=== PATIENT | female | born 1985 | race Two or more races ===

== ENCOUNTER 2025-01-19 15:17 | Emergency (ER) | payer MEDICAID ==
[~2025-01-19] VITALS: Ht 162.6 cm; Wt 85.9 kg
[2025-01-19] MEDS ORDERED: CIPR1SUS8 OT (16:00)
--- NOTE | 2025-01-19 16:00 | ED.PDOC ---
Eye-HPI HPI Comments L ear Chief Complaint: Earache Time Seen by MD: 15:40 Allergies: Coded Allergies: Latex (Verified Allergy, Unknown, 01/19/25) Home Meds Active Scripts Ciprofloxacin-Dexamethasone (Ciprofloxacin/Dexamethaso 0.3-0.1 %) 1 Bianca Bianca, 4 DROP OT BID for 7 Days, #5 ML 0 Refills Prov:CA MERINO PHYSICAL EDUCATION INSTRUCTOR 01/19/25 Mode of Arrival: Ambulatory X-Ray, Labs, Meds, VS Vital Signs Date Time Temp Pulse Resp B/P (MAP) Pulse Ox O2 Delivery O2 Flow Rate FiO2 01/19/25 15:19 98.2 96 18 152/95 99 98.2 SEPSIS Sepsis Screen Date sepsis recognized/suspect: Jan 19, 2025 Time Sepsis recognized/suspect: 1516 Recent Procedure: No On Antibiotic Therapy: No Respiratory Rate >20: No Heart Rate >90: No Temp<36 C (96.8 F) or >38.3 C: No SBP <90 or MAP <65 mmHG: No New Acute Mental Status Change: No Is the patient on CPAP, BIPAP,: No Vital Signs Date Time Temp Pulse Resp B/P (MAP) Pulse Ox O2 Delivery O2 Flow Rate FiO2 01/19/25 15:19 98.2 96 18 152/95 99 98.2 Departure 1 Departure Time of Disposition: 15:59 Impression: Primary Impression: Perforation of tympanic membrane Qualified Codes: H72.92 - Unspecified perforation of tympanic membrane, left ear Disposition: 01 HOME / SELF CARE / HOMELESS Condition: Stable e-Prescriptions Ciprofloxacin-Dexamethasone (Ciprofloxacin/Dexamethaso 0.3-0.1 %) 1 Bianca Bianca 4 DROP OT BID for 7 Days, #5 ML 0 Refills Prov: CA MERINO NP 01/19/25 I personally scribed for CA MERINO NP ([email or web address]) on 01/19/25 at 16:02. Electronically submitted by Yasmine Purvis ([email or web address]). CA MERINO NP Jan 19, 2025 16:00
--- NOTE | 2025-01-19 16:01 | ED.PDOC ---
Eye-HPI HPI Comments 39 year old female presents to the ED with a chief complaint of LT ear pain onset 3 days. Patient states she was cleaning ears with Q-tip, since then has been experiencing clogging sensation, pain when she is laying down and muffled hearing. Has not taken any medication to improve symptoms. No other symptoms or modifying factors present at this time. Denies hearing loss, drainage Denies headache dizziness blurred vision Denies chest pain shortness of breath Chief Complaint: Earache Time Seen by MD: 15:55 Reviewed Notes: Medications, Allergies Allergies: Coded Allergies: Latex (Verified Allergy, Unknown, 01/19/25) Home Meds Active Scripts Ciprofloxacin-Dexamethasone (Ciprofloxacin/Dexamethaso 0.3-0.1 %) 1 Bianca Bianca, 4 DROP OT BID for 7 Days, #5 ML 0 Refills Prov:ANGELIQUECABerenice Wolfe NP 01/19/25 Information Source: Patient Mode of Arrival: Ambulatory Timing: Days Duration: Since onset Prehospital treatment: None Quality: Pain Associated signs and symptoms: Ear Pain Past Medical History PAST MEDICAL HISTORY: Denies Surgical History: Denies all surgeries SUPERVISOR COMPOUNDING AND FINISHING History: No Pertinent SUPERVISOR COMPOUNDING AND FINISHING History Family History Family History: Reviewed,noncontributory to illness, No family hx of Cancer, No family hx of DM, No family hx of Heart quique, No family hx of HTN, No family hx ofKidney quique, No family hx of Liver quique, No family hx of Lung quique, No family hx of Stroke Social History Smoker: Non-Smoker Alcohol: Denies ETOH Use Drugs: Denies Drug Use Lives In: Home All Other Systems: Reviewed and Negative (as per HPI) Physical Exam General Appearance: No Apparent Distress, Normal HEENT: TM Abnormal (L) (perforated TM at 1 oclock, no active bleeding, hearing still intact ) Neck: Full Range of Motion, Non-Tender, Normal, Normal Inspection Respiratory: Chest Non-Tender, Lungs Clear, No Accessory Muscle Use, No Respiratory Distress, Normal Breath Sounds Cardiovascular: No Edema, No JVD, No Murmur, No Gallop, Normal Peripheral Pulses, Regular Rate/Rhythm Breast Exam: Deferred Gastrointestinal: No Organomegaly, Non Tender, No Pulsatile Mass, Normal Bowel Sounds, Soft Genitalia: Deferred Pelvic: Deferred Rectal: Deferred Extremities: No calf tenderness, Normal capillary refill, Normal inspection, Normal range of motion, Non-tender, No pedal edema Musculoskeletal : Apperance: Normal Neurologic: Alert, power house control room operator II-XII nml as Tested, No Motor Deficits, Normal Affect, Normal Mood, No Sensory Deficits Cerebellar Function: Normal Reflexes: Normal Skin: Dry, Normal Color, Warm Lymphatic: No Adenopathy Was a procedure done? Was a procedure done?: No X-Ray, Labs, Meds, VS Vital Signs Date Time Temp Pulse Resp B/P (MAP) Pulse Ox O2 Delivery O2 Flow Rate FiO2 01/19/25 15:19 98.2 96 18 152/95 99 98.2 X-Ray, Labs, Meds, VS Comment 39 year old female presents to the ED with a chief complaint of LT ear pain onset 3 days. Patient arrives alert and oriented, ABC's intact, afebrile, vital signs stable, saturating well in room air Additional MDM Review of External, Non-ED records: External records reviewed. Discussion with independent historian (EMS, family) history obtained from the patient/parents (if applicable) at bedside Chronic conditions affecting care: None Social determinants of health affecting care: None Consideration of admission (observation or admission): I considered escalation of care to admission for this patient, however given the reassuring workup, the patient is safe for outpatient management. On reevaluation, patient had symptomatic improvement. Patient is stable for discharge at this time. External notes reviewed. Test results and diagnostic imaging interpreted. All diagnostic findings, discharge care, education and instructions provided Follow-up with PCP in 2 to 3 days Patient verbalized understanding and agreed to treatment plan Vital signs stable, afebrile, no acute distress noted Patient ambulatory with strong steady gait Advised to return precautions for any new or worsening symptoms, return to ER immediately for re-evaluation Patient is aware that the purpose of this visit was for an acute medical emergency requiring emergent stabilization. Chronic conditions, including malignancies have not been ruled out. Patient is instructed to follow up with PCP as directed and discharge instructions for continued care and workup. If unable to arrange follow-up, patient is to return to the emergency department for reassessment. Patient (parent or legal guardian if applicable) was given verbal and written discharge instructions and acknowledges understanding. Time of 1ST Reevaluation: 16:25 Reevaluation 1ST: Improved Patient Education/Counseling: Diagnosis, Treatment Family Education/Counseling: No Family Present SEPSIS Sepsis Screen Date sepsis recognized/suspect: Jan 19, 2025 Time Sepsis recognized/suspect: 1517 Recent Procedure: No On Antibiotic Therapy: No Respiratory Rate >20: No Heart Rate >90: No Temp<36 C (96.8 F) or >38.3 C: No SBP <90 or MAP <65 mmHG: No New Acute Mental Status Change: No Is the patient on CPAP, BIPAP,: No Vital Signs Date Time Temp Pulse Resp B/P (MAP) Pulse Ox O2 Delivery O2 Flow Rate FiO2 01/19/25 15:19 98.2 96 18 152/95 99 98.2 Departure 1 Departure Time of Disposition: 16:00 Impression: Primary Impression: Perforation of tympanic membrane Qualified Codes: H72.92 - Unspecified perforation of tympanic membrane, left ear Disposition: HOME / SELF CARE / HOMELESS Condition: Stable e-Prescriptions Ciprofloxacin-Dexamethasone (Ciprofloxacin/Dexamethaso 0.3-0.1 %) 1 Bianca Bianca 4 DROP OT BID for 7 Days, #5 ML 0 Refills Prov: CA MERINO NP 01/19/25 Discharged With: Self Critical Care Note Critical Care Time?: No Stability Stability form required: No Heart Score Heart Score: Heart Score Response (Comments) Value History N/A 0 EKG N/A 0 Age N/A 0 Risk Factors N/A 0 Troponin N/A 0 Total 0 I personally scribed for CA MERINO NP ([email or web address]) on 01/19/25 at 16:01. Electronically submitted by Yasmine Purvis ([email or web address]). I personally scribed for CA MERINO NP ([email or web address]) on 01/19/25 at 16:04. Electronically submitted by Yasmine Purvis ([email or web address]). CA MERINO FENCE BUILDER Jan 19, 2025 16:01
[2025-01-19 16:16] VITALS: BP 127/62; PULSE 77; RESP 17; TEMP 98.7; O2SAT 97
== END 2025-01-19 16:17 | disposition home or self-care (01) ==
LOC: ER 15:17
DX: H72.92 Unspecified perforation of tympanic membrane, left ear (principal); Z91.040 Latex allergy status; Z79.899 Other long term (current) drug therapy